=== PATIENT | male | born 1970 | race Caucasian/White ===

== ENCOUNTER 2025-03-28 11:59 | Inpatient (IN) | payer MEDICAID ==
[2025-03-28] VITALS (7 sets, daily range): BP systolic 104–147; BP diastolic 59–89; PULSE 64–94; RESP 16–21; TEMP 97.4–97.9; O2SAT 63–98
[~2025-03-28] VITALS: Ht 180.3 cm; Wt 143.2 kg
[2025-03-28 12:29] LABS: MEAN PLATELET VOLUME 8.7 FL (7.4-10.4); RED CELL DISTRIBUTION WIDTH 15.9 % (11.5-14.5)
--- NOTE | 2025-03-28 12:48 | ELECTROCARDIOGRAPH REPORT ---
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 Hudson Morocho Measurements Intervals [place] Rate: 77 P: 0 FL: 0 QRS: 66 QRSD: 102 T: 24 QT: 435 QTc: 493 Interpretive Statements Atrial fibrillation Borderline prolonged QT interval Baseline wander in lead(s) V3 Electronically Signed On 03-28-2025 13:04:[address] Hudson Morocho Please click the below link to view image of tracing.
[2025-03-28 12:59] LABS: APTT 37 SECONDS (22-32); INR 2.8 INR
--- NOTE | 2025-03-28 13:00 | Physician Documentation ---
History of Present Illness ~ Chief Complaint: Chest Pain Stated Complaint: NSTEMI Time Seen by MD: 12:05 OK to notify your PCP?: Yes Primary Medical Doctor: Dr CHOWDARY Source: patient, RN/MD, EMS, RN notes reviewed, EMS notes reviewed, old records Mode of Arrival: EMS Exam Limitations: no limitations HPI This pleasant 54-year-old has a history of AFib on Coumadin also history of an aortic dissection status post stent and graft. That was a year ago at [facility]. He also had a stroke at that time. The patient this has a this presentation was similar to in the past. Patient reported bilateral numbness and tingling to his feet but also had some back and chest pressure as well. Patient states he was doing well otherwise he had some marijuana of the night before and presented to the local hospital where his INR was 2.4. He received aspirin 325 no heparin was given since he is already anticoagulated in his initial troponin was elevated at 53. After a CT angiogram that showed a negative dissection patient was stable for transfer and was sent to our facility for a non ST-elevation NV. His creatinine at the time was reported at 1.5. His last ejection fraction was 55-60% patient's symptoms have nearly resolved except for his chest discomfort which is mild at time of discharge to our facility by air transport. Medication Reconciliation Allergies: Coded Allergies: Penicillins (Verified Allergy, Unknown, Rash, 03/28/25) Past Medical History Past Medical History: CVA/TIA/Stroke, *CARDIOVASCULAR* (Aortic dissection with stent), Atrial Fibrillation, Hypertension Past Surgical History: other (Gastric sleeve, aortic graft stent) Smoking Status: Current some day smoker Alcohol Use: Occasionally Review of Systems All Other Systems at this time: Reviewed and Negative Physical Exam Vital Signs: RN Vital Signs have been reviewed: Yes, Temperature: 98.5, Source: Oral, Heart Rate: 80, Respiratory Rate: 18, BP: 174/110, Pulse Oximetry: 94, Weight: 143.180 Oxygen Flow Rate: 0 Physical Exam General: The patient is well developed, well nourished, nontoxic appearing and is in no acute distress. Skin: [place], warm and dry with no rashes. HEENT: Head was normocephalic and atraumatic. Eyes - pupils equal, round, reactive to light and accommodation. Extraocular movements were intact. Conjunctivae were nonicteric. Ears - bilateral tympanic membranes were normal. The mouth and oropharynx were clear with moist mucous membranes. There were no pharyngeal exudates or erythema. Neck: Supple and nontender. There was no jugular venous distention, lymphadenopathy, thyromegaly or masses. Chest: Clear to auscultation bilaterally without wheezes, rales or rhonchi. No accessory muscle use. No dullness to percussion. Heart: Rate IRregular and rhythmic. S1, S2. No murmurs. Palpation of the chest wall was normal. Abdomen: Soft, nontender and nondistended. Positive bowel sounds. No guarding or rebound. No hepatosplenomegaly or palpable masses. Extremities: No cyanosis, clubbing or edema. The patient moves all extremities. Pulses were equal and symmetric. Neurologic: Motor sensory grossly intact Psychologic: The patient was oriented to person, place and time. The patient demonstrated appropriate judgement and insight. Progress Progress Note 2:00 p.m. spoke to the resident team regarding admission. Results/Orders Reviewed/noted all lab results: Yes Results/Orders Orders - EFREN SAEZ MD Monitor (03/28/25 12:05) Oxygen (03/28/25 12:05) Page Hospitalist (03/28/25 13:04) Fill Out Med Reconciliation (03/28/25 13:04) Magnesium Sulf-Water 2g/50ml (Magnesium (03/28/25 13:10) Potassium Cl 10meq/100ml Bag (Potassium (03/28/25 13:10) Completed Orders - EFREN SAEZ MD Cbc/Diff (03/28/25 12:05) Pt Inr (03/28/25 12:05) PTT (03/28/25 12:05) PBNP (03/28/25 12:05) BMP (03/28/25 12:05) Hs Troponin I W Calculations (03/28/25 12:05) Metoprolol Tartrate Tablet (Lopressor Ta (03/28/25 13:05) Metoprolol Tartrate Tablet (Lopressor Ta (03/28/25 13:10) Potassium Cl Sr Tablet (K-Dur Tablet) (03/28/25 13:10) MG (03/28/25 12:22) Medications Received in ER Medications (Trade) Dose Ordered Sig/Dorita Route PRN Reason Start Time Stop Time Status Last Admin Dose Admin (Lopressor tablet) 25 mg ONCE ONCE PO 03/28/25 13:10 03/28/25 13:11 DC 03/28/25 13:42 25 MG Magnesium Sulfate 50 ml @ 25 mls/hr ONCE ONCE IV 03/28/25 13:10 03/28/25 15:09 03/28/25 13:42 25 MLS/HR (K-DUR tablet) 20 meq ONCE ONCE PO 03/28/25 13:10 03/28/25 13:11 DC 03/28/25 13:42 20 MEQ Potassium Chloride 100 ml @ 100 mls/hr ONCE ONCE IV 03/28/25 13:10 03/28/25 14:09 03/28/25 13:41 100 MLS/HR Vital Signs 03/28/25 03/28/25 03/28/25 03/28/25 12:01 12:17 13:20 13:42 Temp 98.5 Pulse 80 64 70 Resp 18 18 B/P (MAP) 174/110 149/87 (107) Pulse Ox 94 98 O2 Flow Rate 0 0 Laboratory Tests Test 03/28/25 12:19 03/28/25 12:22 White Blood Count 6.5 Red Blood Count 4.42 L Hemoglobin 14.8 Hematocrit 42.6 Mean Corpuscular Volume 96.5 Mean Corpuscular Hemoglobin 33.4 H Mean Corpuscular Hemoglobin Concent 34.6 Red Cell Distribution Width 15.9 H Platelet Count 156 Mean Platelet Volume 8.7 Neutrophils (%) (Auto) 66.7 Lymphocytes (%) (Auto) 22.3 Monocytes (%) (Auto) 7.3 Eosinophils (%) (Auto) 2.4 Basophils (%) (Auto) 1.3 H Neutrophils # (Auto) 4.3 Lymphocytes # (Auto) 1.4 Monocytes # (Auto) 0.5 Eosinophils # (Auto) 0.2 Basophils # (Auto) 0.1 CBC Comment Prothrombin Time 26.0 H INR International Normalized Ratio 2.8 Activated Partial Thromboplast Time 37 H Coagulation Comments Troponin I High Sensitivity 44 Sodium Level 143 Potassium Level 3.0 *L Chloride Level 107 Carbon Dioxide Level 27.7 Anion Gap 8 Blood Urea Nitrogen 18 Creatinine 1.32 H Estimated GFR/1.73 m2 57 BUN/Creatinine Ratio 13.6 Glucose Level 91 Calcium Level 8.3 L Magnesium Level 1.6 Pro-B-Type Natriuretic Peptide 2893 H Albumin 3.4 Chemistry Comments Re-Evaluation Re-Evaluation : Re-Evaluation: Improved Progress Patient was seen and examined. Patient is given reassurance. EKG did not show any acute ischemia. Patient received aspirin prior to arrival patient is already therapeutic on their Coumadin levels with an INR 2.4. Patient's symptoms have mostly resolved. Patient was then transferred to our hospital for stress test and non ST-elevation NV. laboratory work is in the chart. Labs were redrawn. Hospitalist was consulted. Patient was also placed on a monitor prior to admission. Patient's blood pressure was slightly elevated. Patient was given low-dose Lopressor. Continuous software engineer intern interpretation shows irregular heart rate without ectopy heart rate 80s, normal, my Interpretation. Pulse oximetry monitor interpretation shows normal oxygenation at 95% room air, normal, my interpretation. 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 Efren Saez Measurements Intervals [place] Rate: 77 P: 0 [place]: 0 QRS: 66 QRSD: 102 T: 24 QT: 435 QTc: 493 Interpretive Statements Atrial fibrillation Borderline prolonged QT interval Baseline wander in lead(s) V3 Electronically Signed On 03-28-2025 13:04:[address] Efren Saez Medical Decision Making Additional info obtained from: old records Differential Dx:Considerations: Include: angina, aortic dissection, chest wall pain, cholelithiasis, CHF, costochondritis, esophageal reflux/spasm, gastritis, myocardial infarction, pancreatitis, pneumonia, pneumothorax, pulmonary embolus, other Departure Disposition: 09 ADMITTED INPATIENT Admission Level of Care: PCU with Tele Impression: Primary Impression: NSTEMI (non-ST elevated myocardial infarction) Additional Impressions: HTN (hypertension) Qualified Codes: I10 - Essential (primary) hypertension Hypokalemia Condition: Guarded Referrals: NO PRIMARY CARE PROVIDER (PCP) Education Educated: Patient Educated regarding: diagnosis, need for follow up Critical Care Note Total Time (mins): 30 Critical Care Note The very real possibility of a deterioration of this patient's condition required the highest level of my preparedness for sudden, emergent intervention. I provided critical care services, which included medication orders, frequent reevaluations of the patient's condition and response to treatment, ordering and reviewing test results, and discussing the case with various consultants. Excludes time spent performing separately billable procedures. The critical care time associated with the care of the patient was.30 Signature Scribe Signature: x Attestation: The very real possibility of a deterioration of this patient's condition required the highest level of my preparedness for sudden, emergent intervention. I provided critical care services, which included medication orders, frequent reevaluations of the patient's condition and response to treatment, ordering and reviewing test results, and discussing the case with various consultants. Excludes time spent performing separately billable procedures. The critical care time associated with the care of the patient was.30 EFREN SAEZ MD Mar 28, 2025 13:00
[2025-03-28 13:01] LABS: CREATININE 1.32 MG/DL (0.60-1.10); PRO BRAIN NATRIURETIC PEPTIDE 2893 PG/ML (0-125); TOTAL CARBON DIOXIDE 27.7 MMOL/L (24-32); eCRCL 69 ML/MIN; eGFR 57 ML/MIN
[2025-03-28] MEDS: potassium CL 10mEq/100ml bag 100 ML IV ONE (13:41)
[2025-03-28] MEDS: magnesium sulf-water 2g/50mL 50 ML IV ONE (13:42)
[2025-03-28] MEDS: potassium Cl 20 mEq SR tablet PO ONE (13:42)
[2025-03-28] MEDS ORDERED: LEVO125T8 PO (14:26)
[2025-03-28] MEDS ORDERED: LOSA25TA41 PO (14:26)
[2025-03-28] MEDS ORDERED: WARF2.5T82 PO (14:26)
[2025-03-28] MEDS ORDERED: POTA-208 PO (14:26)
[2025-03-28] MEDS ORDERED: CARV25TA2 PO (14:26)
[2025-03-28] MEDS ORDERED: ATOR40TA72 PO (14:26)
[2025-03-28] MEDS ORDERED: FURO40TA4 PO (14:26)
[2025-03-28] MEDS ORDERED: MAGN400T56 PO (14:26)
[2025-03-28] MEDS ORDERED: WARF-55 PO (14:26)
[2025-03-28] MEDS ORDERED: SPIR50TA5 PO (14:26)
[2025-03-28] MEDS ORDERED: ESCI-8 PO (14:26)
[2025-03-28] MEDS ORDERED: MECO10005 PO (14:56)
[2025-03-28] MEDS ORDERED: CHOL50004 PO (14:56)
[2025-03-28] MEDS ORDERED: ondansetron/PF 4mg/2ml inj IV PRN (16:10)
[2025-03-28] MEDS ORDERED: magnesium Cl slow-release 64mg tablet PO PRN (16:10)
[2025-03-28] MEDS ORDERED: magnesium sulf-water 4G/100mL 100 ML IV PRN (16:10)
[2025-03-28] MEDS ORDERED: aminophylline 250mg/10ml inj. IV PRN (16:10)
[2025-03-28] MEDS ORDERED: metoprolol tartrate 1mg/ml inj IV PRN (16:10)
[2025-03-28] MEDS ORDERED: mag hydrox/Alum hydrox/simeth 30ml oral suspension PO PRN (16:10)
[2025-03-28] MEDS ORDERED: magnesium hydroxide 30ml (MOM) UD suspension PO PRN (16:10)
[2025-03-28] MEDS: PERFLUTREN PROTEIN-A MICROSPHR (Optison) 0.22 MG/ML 3ML VIAL IV ONE (16:10)
[2025-03-28] MEDS ORDERED: potassium Cl 40MEQ/1/2NS 520ml 520 ML IV PRN (16:10)
[2025-03-28] MEDS ORDERED: magnesium sulf-water 2g/50mL 50 ML IV PRN (16:10)
--- NOTE | 2025-03-28 16:34 | HISTORY AND PHYSICAL-Residence ---
History & Physical Providers to Resident Creating Document: ATIYA BECK, RES ~ History of Present Illness Primary Medical Doctor: Dr CHOWDARY Reason for Admit\Complaint: Chest pain History of Present Illness The patient is a 54-year-old male with past medical history of ascending aortic dissection status post graft placement with valve repair, hypertension, antiphospholipid antibody syndrome, atrial fibrillation, CKD stage 3, hypothyroidism, morbid obesity, obstructive sleep apnea, patent foramen ovale, history of multiple strokes, TIAs, primary aldosteronism, peripheral neuropathy, was transferred from [facility] for cardiac evaluation. The patient was resting last night when he developed sudden onset of 8/10 crushing type of chest pain, nonradiating, located in the center, associated with hot flushing from head to toes, numbness all over, shortness of breath which lasted for about 3-4 minutes. His called 911 after which he was transferred to [facility]. He described the pain similar to the episode when he had aortic dissection. No complaint of nausea, vomiting, diaphoresis, palpitations. Denies fevers, loss of weight, cough, syncope, abdominal pain, diarrhea, constipation, burning micturition. He reports having frequent palpitations almost twice daily since recently. Patient has a past medical history of antiphospholipid antibody syndrome for which he started using warfarin since 2020. He sustained multiple TIAs and a stroke before initiation of warfarin. He also has a patent foramen ovale. No history of DC. Allergies: Coded Allergies: Penicillins (Verified Allergy, Unknown, Rash, 03/28/25) Home Medications Home Medications Active Reported Vitamin D3 (Cholecalciferol (Vitamin D3)) 125 Mcg (5000 Unit) Capsule 1 Cap PO DAILY 30 Days B12 Active (Mecobalamin) 1,000 Mcg Tab.chew 4,000 Mcg PO DAILY 30 Days Magnesium Oxide 400 Mg (241.3 Mg Magnesium) Tablet 1 Tab PO DAILY Levothyroxine Sodium 125 Mcg Tablet 1 Tab PO DAILY Atorvastatin Calcium 40 Mg Tablet 1 Tab PO DAILY Escitalopram Oxalate 10 Mg Tablet 1 Tab PO DAILY Potassium Chloride 20 Meq Tab.prt.sr 1 Tab PO TID Carvedilol 25 Mg Tablet 0.5 Tab PO BID Losartan Potassium 25 Mg Tablet 1 Tab PO DAILY Warfarin Sodium 2.5 Mg Tablet 1 Tab PO DAILY Warfarin Sodium 5 Mg Tablet 1 Tab PO DAILY Furosemide 40 Mg Tablet 1 Tab PO BID Spironolactone 50 Mg Tablet 0.5 Tab PO DAILY Past Medical History Past Medical History Antiphospholipid antibody syndrome Ascending aortic dissection status post graft placement Atrial fibrillation CKD stage 3 Hypothyroidism Morbid obesity Obstructive sleep apnea Patent foramen ovale Peripheral neuropathy Primary aldosteronism History of multiple strokes and TIAs Past Surgical History Surgical History Comment Gastric sleeve surgery in 2017 Replacement of ascending aorta, valve resuspension, aortic valve repair simple with commissural stitch in 2019 Past Social History Social History Comment PCP-Dr. Dannielle Chowdary Sales Product Specialist-Dr. Tello at [facility] cardiology Follows up with Dr. Andrea at [facility] for yearly CT scan review for aortic dissection Goes to INR clinic for warfarin dosage Patient lives with his fiancee. Currently not working, on disability. Independent with the ADLs. Smokes two cigars per day, has been smoking for three weeks. One joint of marijuana per month. Finishes one bottle of wine per week. No other illicit drug abuse. Alcohol Use: Occasionally ROS All Other Systems: Reviewed and Negative ROS Reviewed in full. Negative except for pertinent positives in HPI. Exam Vitals: Vital Signs Date Time Temp Pulse Resp B/P (MAP) Pulse Ox O2 Delivery O2 Flow Rate FiO2 03/28/25 15:49 97.4 66 18 147/89 (108) 98 Room Air 03/28/25 13:20 0 General: Adult male, morbidly obese, alert and oriented x4, not in acute distress Head: Normocephalic with an atraumatic Eyes: Pupils- 3mm, reacting to light, conjunctiva- anicteric Nose and throat: No polyps, septum- normal, no mucosal ulcers Neck: Supple, no lymphadenopathy, no carotid bruit Respiratory: No use of accessory muscles of respiration, Bilateral normal vesicular breath sounds heard. No wheeze, rhochi or creps Cardiac: S1-S2 heard, rhythm irregular, no gallop/murmur Abdomen: non distended, no tenderness, no organomegaly, bowel sounds - heard Extremities: no clubbing, no pedal edema, no deformities, peripheral pulses - 2+ Skin: warm and dry, no rash, no purpura Neuro: No focal deficit, gross cranial nerve exam - normal Diagnostic Data Last Recorded Lab Results: 03/28/25 1219 03/28/25 1222 Diagnostic Data: Laboratory Tests Test 03/28/25 12:19 Prothrombin Time 26.0 SECONDS (9.0-12.0) H INR International Normalized Ratio 2.8 INR Activated Partial Thromboplast Time 37 SECONDS (22-32) H Coagulation Comments Counseling Services Smoking & Tobacco Cessation: > 10 Minutes Advance Care Planning Advanced Care plannin - 30 Minutes (Full code) Additional Plan A 54-year-old male with past medical history of aortic dissection, antiphospholipid antibody syndrome, hypertension, hypothyroidism, CKD, AFib, was transferred from [facility] for cardiac evaluation. He is being admitted into the hospital for further evaluation and management. Plan: Chest pain Rule out ACS Possible unstable angina HEART score 6 Troponins mildly elevated 47, downtrended to 45, 44 in our hospital. Follow up with serial troponins. Patient currently has soreness like pain in his chest. Stress test in a.m. Echocardiogram in 11/05 showed EF of 55-60%. ProBNP 2800. Continue IV Lasix 40 mg b.i.d. Continue warfarin to maintain INR between 2-3. History of ascending aortic dissection s/p graft placement and valve repair Continue follow up with [facility]. Now coming with back pain, similar symptoms as previous dissection. CTA done at [facility] apparently normal. CTA records not found. Trying to access records. Continue carvedilol. Maintain stable blood pressure. Chronic atrial fibrillation with controlled ventricular rate Continue warfarin to maintain INR 2-3. Continue carvedilol for rate control. Hypokalemia Potassium 3.0. Magnesium 1.6. He received 2 g of magnesium sulfate IV in the ER. Potassium replacement as per protocol. Maintain potassium greater than four and magnesium greater than two. Antiphospholipid antibody syndrome History of multiple TIAs History of CVA Continue warfarin to maintain INR 2-3. Continue home atorvastatin 40 mg daily. Hypertension Continue carvedilol 12.5 mg b.i.d. Continue losartan 25 mg daily. Continue spironolactone 25 mg daily. Recommend keeping blood pressure is stable as patient has aortic dissection. Hypothyroidism Continue home levothyroxine 175 mcg daily. Morbid obesity, BMI 44 S/p gastric sleeve surgery Continue outpatient follow up. CKD stage III Possible KAYLYN on CKD secondary to vasomotor nephropathy Continue Lasix. Monitor BMP. Obstructive sleep apnea Uses CPAP at night. Continue CPAP. Continue outpatient management. Code Status: Full code DVT Prophylaxis: Warfarin Analgesia/Sedation: Tylenol Lines/Tubes: PIV Nutrition: Heart healthy diet, NPO from midnight PT: Ordered Prognosis: Guarded Disposition: We will admit the patient into PCU. Lexiscan in a.m. Continue telemetry monitoring. Replace electrolytes. Follow up with serial troponins. Atiya Beck MD Internal Medicine Resident PGY-2 Date of Service: Mar 28, 2025 Billing Provider: YAYA VERDE MD,ATIYA CHILDRESS, RES Mar 28, 2025 16:34
--- NOTE | 2025-03-28 16:43 | RADIOLOGY REPORT ---
CHEST RADIOGRAPH REASON FOR EXAM: chest pain COMPARISON: None TECHNIQUE: One view of the chest is provided FINDINGS: The cardiomediastinal silhouette is borderline enlarged. There are sternotomy wires. There is pulmonary venous congestion. There is no focal airspace disease. There is no significant pleura l effusion. There is no pneumothorax. No acute osseous abnormality is identified. IMPRESSION: Borderline cardiomegaly. Pulmonary venous congestion.
[2025-03-28] MEDS: docusate sod 100mg capsule PO SCH (20:00)
[2025-03-28] MEDS: K and/or MAG REPLACEMENT MC SCH (20:00)
[2025-03-28] MEDS: potassium Cl 20 mEq SR tablet PO PRN (20:10)
[2025-03-28] MEDS ORDERED: warfarin 7.5mg tablet PO ONE (21:09)
[2025-03-28] MEDS: warfarin 3mg tablet PO ONE (21:17)
[2025-03-29] VITALS (18 sets, daily range): BP systolic 111–184; BP diastolic 72–114; PULSE 59–97; RESP 13–20; TEMP 97.3–98.1; O2SAT 94–100
[2025-03-29 06:34] LABS: MEAN PLATELET VOLUME 8.6 FL (7.4-10.4); RED CELL DISTRIBUTION WIDTH 15.5 % (11.5-14.5)
[2025-03-29 06:36] LABS: INR 2.7 INR
[2025-03-29 06:48] LABS: CHOL/HDL RATIO 3.0 (0.00-4.99); CREATININE 1.27 MG/DL (0.60-1.10); LDL CHOLESTEROL 53 MG/DL (50-100); TOTAL CARBON DIOXIDE 28.3 MMOL/L (24-32); eCRCL 72 ML/MIN; eGFR 59 ML/MIN
[2025-03-29] MEDS: ESCITALOPRAM 10 mg tablet 10 MG TABLET PO SCH (08:06)
[2025-03-29] MEDS: regadenoson 0.4mg/5ml syringe IV PRN (09:35)
--- NOTE | 2025-03-29 11:55 | RADIOLOGY REPORT ---
HISTORY: unstable angina TECHNIQUE: At peak stress, 8.4 mCi of sestamibi was administered intravenously. Soon thereafter, gated SPECT im aging of the heart was performed with the patient in the supine position. At peak stress, 34.0 mCi of sestamibi was administered intravenously. Soon thereafter, gated SPECT im aging of the heart was performed with the patient in the supine position FINDINGS: The left ventricular myocardium demonstrates uniform radiotracer distribution, without perfusion defe ct. The left ventricular cavity is normal in size. Calculated LVEF is 54 %. No segmental wall motion abno rmality. IMPRESSION: NORMAL MYOCARDIAL PERFUSION EXAM. LVEF 54 %.
[2025-03-29] MEDS ORDERED: hydrALAZINE 20mg/ml inj. IV PRN (17:35)
--- NOTE | 2025-03-29 17:47 | PROGRESS NOTE- Residence ---
Progress Note - Resident Providers to CC Resident Creating Document: GEOVANY MCMILLAN RES ~ Antibiotic Timeout Antibiotic Ordered?: No Subjective Patient was seen and examined at bedside. Patient reports shortness of breath in the morning and tingling sensation in both foots. Patient denies chest pain, nausea, vomiting, diaphoresis, palpitations, fevers, loss of weight, cough, syncope, abdominal pain, diarrhea, constipation, burning micturition. Objective Vital Signs Date Time Temp Pulse Resp B/P (MAP) Pulse Ox O2 Delivery O2 Flow Rate FiO2 03/29/25 11:00 97.3 78 17 111/75 (87) 97 Room Air 03/29/25 03:53 25 03/28/25 20:20 0 Result Diagram: 03/29/2561203/29/25612 Adult male, morbidly obese, alert and oriented x4, not in acute distress Head: Normocephalic with an atraumatic Eyes: Pupils- 3mm, reacting to light, conjunctiva- anicteric Nose and throat: No polyps, septum- normal, no mucosal ulcers Neck: Supple, no lymphadenopathy, no carotid bruit Respiratory: No use of accessory muscles of respiration, Bilateral normal vesicular breath sounds heard. No wheeze, rhochi or creps Cardiac: S1-S2 heard, rhythm irregular, no gallop/murmur Abdomen: non distended, no tenderness, no organomegaly, bowel sounds - heard Extremities: Grade 1 pedal edema on both legs, no clubbing, no deformities, peripheral pulses - 2+ Skin: Sensation on both foots. warm and dry, no rash, no purpura Neuro: No focal deficit, gross cranial nerve exam - normal Coagulation Studies Laboratory Tests Test 03/28/25 12:19 03/29/25 06:13 Activated Partial Thromboplast Time 37 SECONDS (22-32) H Prothrombin Time 25.5 SECONDS (9.0-12.0) H INR International Normalized Ratio 2.7 INR Coagulation Comments Assessment Assessment A 54-year-old male with past medical history of aortic dissection, antiphospholipid antibody syndrome, hypertension, hypothyroidism, CKD, AFib, was transferred from [facility] for cardiac evaluation. Lexiscan and echocardiogram are normal. Plan Plan Acute on chronic diastolic heart failure Angina Borderline cardiomegaly and Pulmonary venous congestion on chest x-ray Initial Troponin is mildly elevated 47 and downtrended to 45, 44. ProBNP is 2800 Normal myocardial perfusion on Lexiscan Echocardiogram on 03/29/25 showed EF of 60% and Small circumferential pericardial effusion. On IV Lasix 40 mg b.i.d. Continue on home medication carvedilol 12.5 mg p.o. b.i.d. Continue on home medications spironolactone 25 mg p.o. once daily History of ascending aortic dissection s/p graft placement and valve repair Continue follow up with [facility]. CTA done at [facility] apparently normal. CTA records not found. Trying to access records. Continue on home medication carvedilol 12.5 mg p.o. b.i.d. Continue on warfarin and maintain in INR between 2-3. Continue On home medication losartan 25 mg p.o. daily once Started on IV hydralazine 10 mg Q.6.H p.r.n. if systolic blood pressure is greater than 160 mm of Hg Chronic atrial fibrillation with controlled ventricular rate Continue on warfarin and maintain in INR between 2-3. Continue on home medication carvedilol 12.5 mg p.o. b.i.d. Hypertension Recommend keeping blood pressure is stable as patient has aortic dissection. Continue on home medication carvedilol 12.5 mg p.o. b.i.d. Continue on home medications spironolactone 25 mg p.o. once daily Continue On home medication losartan 25 mg p.o. daily once Started on IV hydralazine 10 mg Q.6.H p.r.n. if systolic blood pressure is greater than 160 mm of Hg CKD stage III Possible KAYLYN on CKD secondary to vasomotor nephropathy Continue Lasix. Monitor BMP. Strict input and output monitoring Hypokalemia, improved Potassium is 3.1, Magnesium is 1.9. He received 2 g of magnesium sulfate IV in the ER. Potassium replacement as per protocol. Maintain potassium greater than four and magnesium greater than two. Antiphospholipid antibody syndrome History of multiple TIAs History of CVA Continue on warfarin and maintain in INR between 2-3. Continue home atorvastatin 40 mg daily. Hypothyroidism Continue home levothyroxine 175 mcg daily. Morbid obesity, BMI 44 S/p gastric sleeve surgery Continue outpatient follow up. Obstructive sleep apnea Uses CPAP at night. Continue CPAP. Continue outpatient management. Code Status: Full code DVT Prophylaxis: Warfarin Analgesia/Sedation: Tylenol Lines/Tubes: PIV Nutrition: Heart healthy diet PT: Ordered Prognosis: Guarded Disposition: A 54 years old male patient admitted for cardiac evaluation from [facility]. Lexiscan and echocardiogram are normal. Patient still have shortness of breath and swelling of both legs. We will continue the medical management. Geovany Mcmillan MD Internal Medicine Resident PGY-1 Date of Service: Mar 29, 2025 Billing Provider: JUAN J ESTRADA DO Common Visit Codes: [id number] INP/OBS CARE(HIGH) GEOVANY MCMILLAN, RES Mar 29, 2025 17:47 JUAN J ESTRADA DO Mar 29, 2025 19:33
[2025-03-29] MEDS: potassium Cl 20 mEq SR tablet PO PRN (18:33)
[2025-03-29] MEDS: warfarin 3mg tablet PO ONE (22:01)
[2025-03-30] VITALS (7 sets, daily range): BP systolic 124–140; BP diastolic 72–75; PULSE 64–90; RESP 12–22; TEMP 97.2–98.1; O2SAT 91–97
[2025-03-30 06:55] LABS: MEAN PLATELET VOLUME 8.6 FL (7.4-10.4); RED CELL DISTRIBUTION WIDTH 15.4 % (11.5-14.5)
[2025-03-30 07:03] LABS: INR 2.5 INR
[2025-03-30 07:21] LABS: CREATININE 1.24 MG/DL (0.60-1.10); TOTAL CARBON DIOXIDE 28.7 MMOL/L (24-32); eCRCL 73 ML/MIN; eGFR 61 ML/MIN
--- NOTE | 2025-03-30 10:03 | PROGRESS NOTE- Residence ---
Progress Note - Resident Providers to CC ~ Subjective Patient was seen and examined at bedside. Patient reports shortness of breath in the morning and tingling sensation in both foots. Patient denies chest pain, nausea, vomiting, diaphoresis, palpitations, fevers, loss of weight, cough, syncope, abdominal pain, diarrhea, constipation, burning micturition. Objective Vital Signs Date Time Temp Pulse Resp B/P (MAP) Pulse Ox O2 Delivery O2 Flow Rate FiO2 03/30/25 09:28 71 16 138/75 (96) 03/30/25 06:00 97.2 91 Bi-pap/CPAP 03/30/25 03:35 25 03/28/25 20:20 0 Result Diagram: 03/30/2562503/30/25625 Adult male, morbidly obese, alert and oriented x4, not in acute distress Head: Normocephalic with an atraumatic Eyes: Pupils- 3mm, reacting to light, conjunctiva- anicteric Nose and throat: No polyps, septum- normal, no mucosal ulcers Neck: Supple, no lymphadenopathy, no carotid bruit Respiratory: No use of accessory muscles of respiration, Bilateral normal vesicular breath sounds heard. No wheeze, rhochi or creps Cardiac: S1-S2 heard, rhythm irregular, no gallop/murmur Abdomen: non distended, no tenderness, no organomegaly, bowel sounds - heard Extremities: Grade 1 pedal edema on both legs, no clubbing, no deformities, peripheral pulses - 2+ Skin: Sensation on both foots. warm and dry, no rash, no purpura Neuro: No focal deficit, gross cranial nerve exam - normal Coagulation Studies Laboratory Tests Test 03/28/25 12:19 03/30/25 06:26 Activated Partial Thromboplast Time 37 SECONDS (22-32) H Prothrombin Time 23.7 SECONDS (9.0-12.0) H INR International Normalized Ratio 2.5 INR Coagulation Comments Assessment Assessment A 54-year-old male with past medical history of aortic dissection, antiphospholipid antibody syndrome, hypertension, hypothyroidism, CKD, AFib, was transferred from [facility] for cardiac evaluation. Lexiscan and echocardiogram are normal. Plan Plan Acute on chronic heart failure with preserved ejection fraction Angina Borderline cardiomegaly and Pulmonary venous congestion on chest x-ray Initial Troponin is mildly elevated 47 and downtrended to 45, 44. ProBNP is 2800 Normal myocardial perfusion on Lexiscan Echocardiogram on 03/29/25 showed EF of 60% and Small circumferential pericardial effusion. On IV Lasix 40 mg b.i.d. Continue on home medication carvedilol 12.5 mg p.o. b.i.d. Continue on home medications spironolactone 25 mg p.o. once daily History of ascending aortic dissection s/p graft placement and valve repair Continue follow up with [facility]. CTA done at [facility] apparently normal. CTA records not found. Trying to access records. Continue on home medication carvedilol 12.5 mg p.o. b.i.d. Continue on warfarin and maintain in INR between 2-3. Continue On home medication losartan 25 mg p.o. daily once Started on IV hydralazine 10 mg Q.6.H p.r.n. if systolic blood pressure is greater than 160 mm of Hg Chronic atrial fibrillation with controlled ventricular rate Continue on warfarin and maintain in INR between 2-3. Continue on home medication carvedilol 12.5 mg p.o. b.i.d. Hypertension Recommend keeping blood pressure is stable as patient has aortic dissection. Continue on home medication carvedilol 12.5 mg p.o. b.i.d. Continue on home medications spironolactone 25 mg p.o. once daily Continue On home medication losartan 25 mg p.o. daily once Started on IV hydralazine 10 mg Q.6.H p.r.n. if systolic blood pressure is greater than 160 mm of Hg CKD stage III Possible KAYLYN on CKD secondary to vasomotor nephropathy Continue Lasix. Monitor BMP. Strict input and output monitoring Hypokalemia, improved Potassium is 3.1, Magnesium is 1.9. He received 2 g of magnesium sulfate IV in the ER. Potassium replacement as per protocol. Maintain potassium greater than four and magnesium greater than two. Antiphospholipid antibody syndrome History of multiple TIAs History of CVA Continue on warfarin and maintain in INR between 2-3. Continue home atorvastatin 40 mg daily. Hypothyroidism Continue home levothyroxine 175 mcg daily. Morbid obesity, BMI 44 S/p gastric sleeve surgery Continue outpatient follow up. Obstructive sleep apnea Uses CPAP at night. Continue CPAP. Continue outpatient management. Code Status: Full code DVT Prophylaxis: Warfarin Analgesia/Sedation: Tylenol Lines/Tubes: PIV Nutrition: Heart healthy diet PT: Ordered Prognosis: Guarded Disposition: A 54 years old male patient admitted for cardiac evaluation from [facility]. Lexiscan and echocardiogram are normal. Patient still have shortness of breath and swelling of both legs. We will continue the medical management. Geovany Mcmillan MD Internal Medicine Resident PGY-1 GEOVANY MCMILLAN, RES Mar 30, 2025 10:03
[2025-03-30] MEDS ORDERED: FURO40TA4 PO (12:15)
[2025-03-30] MEDS: potassium Cl 20 mEq SR tablet PO STA (12:36)
--- NOTE | 2025-03-30 18:37 | CARDIOLOGY REPORT ---
APPROVED REPORT EXAM: Comprehensive 2D, Doppler, and color-flow Echocardiogram. Patient Location: [facility] Blood Pressure: 152/93 mmHg Heart Rate: 60'S bpm Rhythm: Atrial Fibrillation Indications Chest Pain AFIb Hx aortic dissection with stent + graft Hypertension ? Aortic Valve repair ? Pro BNP 2893 Acute Care Physical Therapist in [place] No previous echo 2D Dimensions LA Diam5.1 cm IVSd 1.2 (0.7-1.1cm) LVDd 5.4 cm PWd 1.3 (0.7-1.1cm) IVSs 2.0 (0.8-1.2cm) LVDs 3.7 (2.5-4.0cm) Aortic Root(2D) 3.9 cm PWs 1.9 (0.8-1.2cm) LVOT Diameter 2.31 (1.8-2.4cm) LVEF(%) 59.2 (>50%) Ao Asc Diam.3.31 cmIVC 24.10 mm FS (%) 31.7 % SV 84.1 ml CO 4.3 L/min M-Mode Dimensions MV EPSS 0.6 (<0.5cm) Aortic Valve AoV Peak Seamus. 124.2 cm/s AoV VTI 24.8 cm AO Peak GR. 6.2 mmHg AO Mean GR. 3 mmHg LVOT VTI 20.91 cm LVOT Peak Seamus. 94.7 cm/s LESLIE(VTI)/BSA 3.54 cm2/m2 LESLIE (VTI) 3.54 cm2 Mitral Valve MV E Velocity 90.5 cm/s MV Peak Gr. 6 mmHg MV DECEL TIME 168 ms MV PHT 64 ms MVA (PHT) 3.44 cm2 MV UAmb630.5 cm/s Tricuspid Valve TR P. Velocity 240 cm/s RAP ESTIMATE 15 mmHg TR Peak Gr. 23 mmHg RVSP 38 mmHg LEFT VENTRICLE Normal LV size and function. Mild concentric hypertrophy. LVEF is 60%. RIGHT VENTRICLE RV appears moderately dilated with normal contractility. RVSP is estimated at 38 mmHG. ATRIA Left atrium is moderately dilated. AORTIC VALVE Trileaflet AV appears sclerotic without stenosis. Mild insufficiency. MITRAL VALVE MV is thickened with mild annular calcification and no stenosis. Mild to moderate mitral regurgitatio n. TRICUSPID VALVE The tricuspid valve is normal in structure. Moderate tricuspid regurgitation. PULMONIC VALVE The pulmonary valve is normal in structure. Trace pulmonic regurgitation. GREAT VESSELS The aortic root is normal in size. The ascending aorta is normal in size. IVC is dilated and collapse s greater than 50% with inspiration. PERICARDIUM Small circumferential pericardial effusion with Other Information Study Quality: Adequate Conclusion Normal LV size and function. Mild concentric hypertrophy. LVEF is 60%. RV appears moderately dilated with normal contractility. RVSP is estimated at 38 mmHG. Left atrium is moderately dilated. Trileaflet AV appears sclerotic without stenosis. Mild insufficiency. MV is thickened with mild annular calcification and no stenosis. Mild to moderate mitral regurgitatio n. The tricuspid valve is normal in structure. Moderate tricuspid regurgitation. The pulmonary valve is normal in structure. Trace pulmonic regurgitation. Small circumferential pericardial effusion with
--- NOTE | 2025-03-30 19:16 | DISCHARGE SUMMARY-Residence ---
Discharge Summary Providers to CC Resident Creating Document: KEKE CABRERAALEXEI GARCIA, RES ~ Discharge Summary Admission Diagnosis: Unstable angina Hospital Course DATE OF ADMISSION: 03/28/2025 DATE OF DISCHARGE: 03/30/2025 Imaging: Chest x-ray: Borderline cardiomegaly. Pulmonary venous congestion. Cardiac imaging NM: NORMAL MYOCARDIAL PERFUSION EXAM. LVEF 54 %. Echocardiogram: Normal LV size and function. Mild concentric hypertrophy. LVEF is 60%. RV appears moderately dilated with normal contractility. RVSP is estimated at 38 mmHG. Left atrium is moderately dilated. Trileaflet AV appears sclerotic without stenosis. Mild insufficiency. MV is thickened with mild annular calcification and no stenosis. Mild to moderate mitral regurgitation. The tricuspid valve is normal in structure. Moderate tricuspid regurgitation. The pulmonary valve is normal in structure. Trace pulmonic regurgitation. Small circumferential pericardial effusion with Discharge Diagnosis\Comment: Acute on chronic heart failure with preserved ejection fraction Stable Angina CKD stage III KAYLYN ruled out History of ascending aortic dissection s/p graft placement and valve repair Chronic atrial fibrillation with controlled ventricular rate Hypertension Hypokalemia, resolved Antiphospholipid antibody syndrome History of multiple TIAs History of CVA Hypothyroidism Morbid obesity, BMI 44 S/p gastric sleeve surgery Obstructive sleep apnea Operations\Procedures: None Consultants: None Complications: None Condition on DC: Stable Discharge Summary: History of present illness by Atiya haines: A 54-year-old male with past medical history of ascending aortic dissection status post graft placement with valve repair, hypertension, antiphospholipid antibody syndrome, atrial fibrillation, CKD stage 3, hypothyroidism, morbid obesity, obstructive sleep apnea, patent foramen ovale, history of multiple strokes, TIAs, primary aldosteronism, peripheral neuropathy, was transferred from [facility] for cardiac evaluation. The patient was resting last night when he developed sudden onset of 8/10 crushing type of chest pain, nonradiating, located in the center, associated with hot flushing from head to toes, numbness all over, shortness of breath which lasted for about 3-4 minutes. His called 911 after which he was transferred to [facility]. He described the pain similar to the episode when he had aortic dissection. No complaint of nausea, vomiting, diaphoresis, palpitations. Denies fevers, loss of weight, cough, syncope, abdominal pain, diarrhea, constipation, burning micturition.He reports having frequent palpitations almost twice daily since recently.Patient has a past medical history of antiphospholipid antibody syndrome for which he started using warfarin since 2020. He sustained multiple TIAs and a stroke before initiation of warfarin. He also has a patent foramen ovale. No history of [place]. Course in the hospital: Patient was admitted for cardiac evaluation for his chest pain. Troponin levels are within normal limits. ProBNP is 2893. BMP showed hypokalemia. Lexiscan was normal and ejection fraction is 65% with no abnormalities on echocardiogram. Vitals were stable. Patient was treated with IV Lasix, carvedilol, losartan, metoprolol, warfarin and spironolactone. Patient condition was improved during the course of hospitalization. Patient denies any chest pain or discomfort or shortness of breaths at the time of discharge. Patient was advised to follow up with the primary care physician and thermo processor after one week and output is to repeat BMP within one week. Advised to continue the home medications. Patient condition is stable at the time of discharge. Patient was advised to call 911 or go to ED immediately in case of any shortness of breath or chest pain. Advised at discharge: Follow - up with PCP and the thermo processor after 1 week. Advised to take Lasix 40 mg P.O TID by mouth and repeat BMP within 1 week. Continue the home medications In case of any SOB or chest pain, Call 911 or go to ED Immmediately. Examination at discharge: Adult male, morbidly obese, alert and oriented x4, not in acute distress Head: Normocephalic with an atraumatic Eyes: Pupils- 3mm, reacting to light, conjunctiva- anicteric Nose and throat: No polyps, septum- normal, no mucosal ulcers Neck: Supple, no lymphadenopathy, no carotid bruit Respiratory: No use of accessory muscles of respiration, Bilateral normal vesicular breath sounds heard. No wheeze, rhochi or creps Cardiac: S1-S2 heard, rhythm irregular, no gallop/murmur Abdomen: non distended, no tenderness, no organomegaly, bowel sounds - heard Extremities: Grade 1 pedal edema on both legs, no clubbing, no deformities, peripheral pulses - 2+ Skin: Sensation on both foots. warm and dry, no rash, no purpura Neuro: No focal deficit, gross cranial nerve exam - normal The patient felt ready to be discharged and was medically cleared to be discharged on 03/30/2025 The patient was seen and evaluated on day of discharge. Time spent on discharge 35 minutes Laboratory Tests Test 03/28/25 22:01 03/29/25 06:13 03/30/25 06:26 Troponin I High Sensitivity 40 ng/L Troponin I High Sens Percent Delta 9 % Troponin I Hi Sens Absolute Change -4 ng/L White Blood Count 5.5 X10'3 6.2 X10'3 Red Blood Count 4.08 X10'6 4.22 X10'6 Hemoglobin 13.6 g/dl 14.1 g/dl Hematocrit 39.3 % 40.9 % Mean Corpuscular Volume 96.5 FL 97.0 FL Mean Corpuscular Hemoglobin 33.5 PG 33.3 PG Mean Corpuscular Hemoglobin Concent 34.7 g/dL 34.4 g/dL Red Cell Distribution Width 15.5 % 15.4 % Platelet Count 124 X10'3 134 X10'3 Mean Platelet Volume 8.6 FL 8.6 FL Neutrophils (%) (Auto) 58.1 % 62.2 % Lymphocytes (%) (Auto) 29.7 % 26.0 % Monocytes (%) (Auto) 8.4 % 8.0 % Eosinophils (%) (Auto) 3.1 % 3.2 % Basophils (%) (Auto) 0.7 % 0.6 % Neutrophils # (Auto) 3.2 X10'3 3.9 X10'3 Lymphocytes # (Auto) 1.6 X10'3 1.6 X10'3 Monocytes # (Auto) 0.5 X10'3 0.5 X10'3 Eosinophils # (Auto) 0.2 X10'3 0.2 X10'3 Basophils # (Auto) 0.0 X10'3 0.0 X10'3 CBC Comment Prothrombin Time 25.5 SECONDS 23.7 SECONDS INR International Normalized Ratio 2.7 INR 2.5 INR Coagulation Comments Sodium Level 146 MMOL/L 143 MMOL/L Potassium Level 3.1 MMOL/L 3.1 MMOL/L Chloride Level 107 MMOL/L 106 MMOL/L Carbon Dioxide Level 28.3 MMOL/L 28.7 MMOL/L Anion Gap 11 8 Blood Urea Nitrogen 18 MG/DL 15 MG/DL Creatinine 1.27 MG/DL 1.24 MG/DL Estimated GFR/1.73 m2 59 ML/MIN 61 ML/MIN BUN/Creatinine Ratio 14.2 12.1 Glucose Level 96 MG/DL 99 MG/DL Calcium Level 8.2 MG/DL 8.2 MG/DL Magnesium Level 1.9 MG/DL 1.8 MG/DL Total Bilirubin 0.7 MG/DL 0.7 MG/DL Aspartate Amino Transf (AST/SGOT) 14 U/L 14 U/L Alanine Aminotransferase (ALT/SGPT) 19 U/L 21 U/L Alkaline Phosphatase 81 IU/L 83 IU/L Total Protein 5.8 G/DL 6.1 G/DL Albumin 3.0 G/DL 3.2 G/DL Globulin 2.8 G/DL 2.9 G/DL Albumin/Globulin Ratio 1.1 1.1 Triglycerides Level 91 MG/DL Cholesterol Level 100 MG/DL LDL Cholesterol 53 MG/DL HDL Cholesterol 33 MG/DL Cholesterol/HDL Ratio 3.0 Chemistry Comments *Problems/Diagnosis: (1) Stable angina (2) Acute on chronic heart failure with preserved ejection fraction (3) Acute kidney failure (4) Vasomotor nephropathy (5) Chronic atrial fibrillation (6) Hypertension (7) CKD (chronic kidney disease), stage III (8) Hypokalemia (9) Antiphospholipid syndrome (10) Morbid obesity (11) History of CVA (cerebrovascular accident) (12) Obstructive sleep apnea Total Time Spent on D/C: > 30 Minutes Date of Service: Mar 30, 2025 Billing Provider: JUAN J ESTRADA DO Common Visit Codes: 06505-UZS/OBS DISCH DAY >30min RASHAD CABRERA, RES Mar 30, 2025 19:05 JUAN J ESTRADA DO Mar 30, 2025 19:57
[2025-03-30] MEDS ORDERED: warfarin 7.5mg tablet PO ONE (21:00)
== END 2025-03-30 13:32 | disposition home or self-care (01) | DRG 198 ==
LOC: ER 12:01 → ED HOLD 14:05 → PCU 3S 15:38
PROVIDERS: ADMIT Family Medicine; ATTEND Family Medicine
PROC: 4A02XM4 Measurement of Cardiac Total Activity, External Approach (ICD-10-PCS; principal; 2025-03-28)
PROC: 3E033HZ Introduction of Radioactive Substance into Peripheral Vein, Percutaneous Approach (ICD-10-PCS; 2025-03-28)
PROC: 5A09357 Assistance with Respiratory Ventilation, Less than 24 Consecutive Hours, Continuous Positive Airway Pressure (ICD-10-PCS; 2025-03-29)
DX: I20.89 Other forms of angina pectoris (principal); I50.33 Acute on chronic diastolic (congestive) heart failure; D68.61 Antiphospholipid syndrome; E11.22 Type 2 diabetes mellitus with diabetic chronic kidney disease; Q21.12 Patent foramen ovale; E11.42 Type 2 diabetes mellitus with diabetic polyneuropathy; E03.9 Hypothyroidism, unspecified; E87.6 Hypokalemia; N18.30 Chronic kidney disease, stage 3 unspecified; E66.01 Morbid (severe) obesity due to excess calories; G47.33 Obstructive sleep apnea (adult) (pediatric); I48.20 Chronic atrial fibrillation, unspecified; I13.0 Hypertensive heart and chronic kidney disease with heart failure and stage 1 through stage 4 chronic kidney disease, or unspecified chronic kidney disease; Z79.899 Other long term (current) drug therapy; Z87.891 Personal history of nicotine dependence; Z68.41 Body mass index [BMI] 40.0-44.9, adult; Z86.73 Personal history of transient ischemic attack (TIA), and cerebral infarction without residual deficits
CPT/HCPCS: 36415; 71045; 78452; 80048; 80053; 80061; 83036; 83735; 83880; 84443; 84484; 85025; 85610; 85730; 93005; 93017; 93306; 94660; 94760; 97116; 97161; 97530; A9500; C1758; G0378; J1938; J2785; J3480